=== PATIENT | female | born 1995 ===

== ENCOUNTER 2018-12-29 17:34 | Outpatient (REF) | payer SELFPAY ==
--- NOTE | 2018-12-29 15:30 | PAPFT_PTH ---
PATIENT: ALEX LINDQUIST LOC: [facility] U#:[id number] AGE/SX: 23/F ROOM: RE12/29/[address]: Kinga Valentin : 1995 BED: DIS: 12/29/2018 SPEC #: [id number] RECD: 12/30/18 12:55 STATUS: SHANE RERaj #: [id number] TERRA: 12/29/18 15:[address]: Kinag Valentin DEPT: [facility] Cytology RECD BY: Marie Maher Tissues: 1 - CX/ENDOCX FOR PAP SMEARS Procedures: PAP THIN PREP/[facility] Screening Comments: [id number] (CHLAMYDIA/GC)
[2018-12-29 22:21] LABS: Anion Gap 7.3 mmol/L (3-11); BUN 8 mg/dL (7-18); CO2 30.7 mmol/L (21.0-32.0); CREATININE 0.56 mg/dL (0.55-1.02); Calcium 9.4 mg/dL (8.5-10.1); Chloride 102 mmol/L (98-107); Glucose 90 mg/dL (70-100); Potassium 4.4 mmol/L (3.5-5.1); Sodium 140 mmol/L (136-145)
[2018-12-29 22:35] LABS: Hemoglobin A1C 5.2 % (4.5-6.2)
[2018-12-29 22:50] LABS: Vitamin D 25 Total 35.9 ng/ml (30-100)
[2018-12-31 10:38] LABS: HIV-1/2 Ag & Ab Screen Negative (NEGAT)
[2019-01-02 12:32] LABS: Rubella IgG Ab (UVM) Negative
[2019-01-02 14:38] LABS: Chlamydia Result Negative; GC Result Negative; Specimen Description SEE COMMENTS
== END 2018-12-29 17:54 ==
LOC: NCHCN 17:34
PROVIDERS: PCP Family Medicine; Visit Provider Family Medicine
DX: Z00.00 Encounter for general adult medical examination without abnormal findings (principal); Z11.4 Encounter for screening for human immunodeficiency virus [HIV]; Z13.1 Encounter for screening for diabetes mellitus; Z13.228 Encounter for screening for other metabolic disorders; Z12.4 Encounter for screening for malignant neoplasm of cervix
CPT/HCPCS: 80048; 82306; 87389; 87491; 87591; 88142; 83036; 86762